=== PATIENT | male | born 1960 | race African-American/Black ===

== ENCOUNTER 2022-03-01 23:50 | Observation (INO) ==
[2022-03-02 01:22] LABS: Basophils % 0.4 % (0.0-0.8); Eosinophils # 0.1 10*3/uL (0.0-0.87); Eosinophils % 1.5 % (0.00-10.9); Hematocrit 42.4 VOL% (42.0-52.0); Hemoglobin 13.6 GM/DL (14.0-18.0); Immature Granulocytes % 0.3 %; Immature Granulocytes Absolute 0.02 #; Lymphocytes # 3.5 10*3/uL (1.4-4.0); Lymphocytes % 50.9 % (21.2-54.2); Mean Corpuscular HGB Conc 32.1 GM/DL (32-36); Mean Platelet Volume 10.2 FL (9.6-12.0); Monocytes # 0.7 10*3/uL (0.11-0.8); Monocytes % 10.2 % (1.7-12.7); Neutrophils % 36.7 % (38.7-73.9); Platelet Count 292 T/CUMM (130-400); Red Blood Count 4.61 MC/CUMM (3.8-5.5); Red Cell Distribution Width 15.7 % (9.3-17.3); White Blood Count 6.9 T/CUMM (4-12)
[2022-03-02 01:42] LABS: PT Patient Result 10.9 SECS (10.1-12.1); Partial Thromboplastin Time 36.5 SECS (23.7-32.9)
[2022-03-02 01:49] LABS: Eosinophils 2 % (0-10); Lymphocytes 52 % (20-55); Platelet Estimate Normal; Total Cells Counted 100
[2022-03-02 02:16] LABS: Calcium 9.5 MG/DL (8.5-10.1); Osmolality,Calculated 280.1 MOS/KG (273-304); Potassium 3.8 MMOL/L (3.5-5.1)
[2022-03-02 02:53] LABS: Barbiturates Screen,Urine Negative (Negative); Benzodiazepines Screen,Urine Negative (Negative); Cannabinoid Screen,Urine Negative (Negative); Opiate Screen,Urine Negative (Negative); Phencyclidine Screen,Urine Negative (Negative)
[2022-03-02] MEDS ORDERED: LORazepam 2 MG/1 ML VIAL IV PRN (12:21)
[2022-03-02] MEDS ORDERED: LABETALOL 20 MG/4 ML SYRINGE IV PRN (12:21)
[2022-03-02] MEDS ORDERED: ONDANSETRON 4 MG/2 ML VIAL IV PRN (12:21)
[2022-03-02] MEDS ORDERED: ACETAMINOPHEN 325 MG TABLET PO PRN (12:21)
[2022-03-02] MEDS ORDERED: THIAMINE INJ 100 MG, FOLIC ACID INJ 1 MG, MULTIVITAMIN INJ 10 ML in DEXTROSE 5% NACL 0.... IV ONE (12:31)
[2022-03-02] MEDS: PANTOPRAZOLE 40 MG TABLET PO SCH (13:40)
[2022-03-02] MEDS: ENOXAPARIN 40 MG/0.4 ML SYRINGE SUBCUT SCH (13:40)
[2022-03-02] MEDS: ASPIRIN 325 MG TABLET PO SCH (13:40)
[2022-03-02] MEDS: THIAMINE 200 MG/2 ML VIAL IV SCH (13:54)
[2022-03-02] MEDS: MULTIVITAMIN (CENTRUM) TABLET PO SCH (13:55)
[2022-03-02] MEDS: FOLIC ACID 1 MG TABLET PO SCH (13:55)
[2022-03-02] MEDS: ATORVASTATIN 40 MG TABLET PO SCH (22:14)
[2022-03-03 04:48] LABS: Basophils % 0.5 % (0.0-0.8); Eosinophils # 0.3 10*3/uL (0.0-0.87); Eosinophils % 4.3 % (0.00-10.9); Hematocrit 41.7 VOL% (42.0-52.0); Hemoglobin 13.2 GM/DL (14.0-18.0); Immature Granulocytes % 0.1 %; Immature Granulocytes Absolute 0.01 #; Lymphocytes # 4.4 10*3/uL (1.4-4.0); Lymphocytes % 59.6 % (21.2-54.2); Mean Corpuscular HGB Conc 31.7 GM/DL (32-36); Mean Corpuscular Volume 91.2 FL (87-102); Mean Platelet Volume 10.3 FL (9.6-12.0); Monocytes # 0.7 10*3/uL (0.11-0.8); Neutrophils % 26.5 % (38.7-73.9); Platelet Count 310 T/CUMM (130-400); Red Blood Count 4.57 MC/CUMM (3.8-5.5); Red Cell Distribution Width 15.6 % (9.3-17.3); White Blood Count 7.4 T/CUMM (4-12)
[2022-03-03 05:11] LABS: Eosinophils 4 % (0-10); Lymphocytes 57 % (20-55); Platelet Estimate Adequate; Total Cells Counted 100
[2022-03-03 05:18] LABS: Calcium 9.2 MG/DL (8.5-10.1); Osmolality,Calculated 276.4 MOS/KG (273-304); Potassium 3.6 MMOL/L (3.5-5.1); Risk Ratio 2.12; VLDL Cholesterol 12.4 MG/DL
[2022-03-03 05:22] LABS: Folate > 24.00 NG/ML (5.38-24.0); Vitamin B12 399 PG/ML (211-911)
[2022-03-03] MEDS: THIAMINE 200 MG/2 ML VIAL IV SCH (08:44)
[2022-03-03] MEDS: MULTIVITAMIN (CENTRUM) TABLET PO SCH (08:45)
[2022-03-03] MEDS: PANTOPRAZOLE 40 MG TABLET PO SCH (08:46)
[2022-03-03] MEDS: FOLIC ACID 1 MG TABLET PO SCH (08:46)
[2022-03-03] MEDS: ASPIRIN 325 MG TABLET PO SCH (08:46)
[2022-03-03] MEDS: ENOXAPARIN 40 MG/0.4 ML SYRINGE SUBCUT SCH (13:27)
[2022-03-03] MEDS: ATORVASTATIN 40 MG TABLET PO SCH (21:56)
[2022-03-04] MEDS ORDERED: INFLUENZA VIRUS VACCINE 0.5 ML SYRINGE IM ONE (08:01)
[2022-03-04 08:11] VITALS: BP 108/66
[2022-03-04] MEDS: ASPIRIN 325 MG TABLET PO SCH (08:53)
[2022-03-04] MEDS: PANTOPRAZOLE 40 MG TABLET PO SCH (08:53)
[2022-03-04] MEDS: FOLIC ACID 1 MG TABLET PO SCH (08:53)
[2022-03-04] MEDS: MULTIVITAMIN (CENTRUM) TABLET PO SCH (08:54)
[2022-03-04] MEDS: THIAMINE 200 MG/2 ML VIAL IV SCH (09:00)
[2022-03-04] MEDS ORDERED: lisinopriL 2.5 MG TABLET PO SCH (09:00)
== END 2022-03-04 10:38 | disposition home or self-care (01) ==
LOC: N.ED 23:50 → N.2W 23:50 → SUATTDRO 03-02 12:21 → N.2W 03-02 14:34
PROVIDERS: ADMIT Phlebology; ATTEND Internal Medicine